=== PATIENT | male | born 1975 | race Caucasian/White ===

== ENCOUNTER 2019-05-23 19:18 | Emergency (ER) | payer OTHER ==
[~2019-05-23] VITALS: Ht 182.9 cm; Wt 86.2 kg
[2019-05-23] MEDS ORDERED: ARMOUR THYROID90 MG (19:37)
== END 2019-05-23 21:27 | disposition home or self-care (01) ==
LOC: ER 19:18
DX: S40.012A Contusion of left shoulder, initial encounter (principal); S50.02XA Contusion of left elbow, initial encounter; S30.1XXA Contusion of abdominal wall, initial encounter; L08.89 Other specified local infections of the skin and subcutaneous tissue; V28.2XXA Unspecified motorcycle rider injured in noncollision transport accident in nontraffic accident, initial encounter; Y93.89 Activity, other specified; Y92.828 Other wilderness area as the place of occurrence of the external cause; Y99.8 Other external cause status